=== PATIENT | female | born 1970 | race Caucasian/White ===

== ENCOUNTER 2018-05-14 11:22 | Emergency (ER) | payer BC ==
[~2018-05-14] VITALS: Ht 157.5 cm; Wt 81.7 kg
[~2018-05-14 11:22] MED LIST: Crutch1 EACH MISC; NAPR550 PO; Percocet 5-3251 EACH PO; Robaxin-750750 MG PO
[2018-05-14] MEDS ORDERED: Norco 5-325 Ta1 EACH PO (13:19)
== END 2018-05-14 13:28 | disposition home or self-care (01) ==
LOC: ER 11:22
DX: S83.91XA Sprain of unspecified site of right knee, initial encounter (principal); S50.02XA Contusion of left elbow, initial encounter; W18.30XA Fall on same level, unspecified, initial encounter; F17.210 Nicotine dependence, cigarettes, uncomplicated
CPT/HCPCS: 73080; 73562-LT; 99284-25